=== PATIENT | female | born 1940 | race Caucasian/White ===

== ENCOUNTER 2018-05-31 10:21 | Emergency (ER) | payer MEDICARE, OTHER ==
[2018-05-31 11:31] LABS: BASO % 0.9 % (0.0-1.0); EOS # 0.1 10^3/uL (0.0-0.50); EOS % 2.8 % (0.0-3.0); HEMATOCRIT 33.9 % (36.0-47.0); HEMOGLOBIN 11.4 g/dl (12.0-15.5); IMMATURE GRANULOCYTE % 0.2 % (0-3.0); LYMPH # 1.7 10^3/uL (1.5-4.5); MEAN CORPUSCULAR HEMOGLOBIN 33.2 pg (27.0-33.0); MEAN CORPUSCULAR HGB CONC 33.6 g/dl (32.0-36.5); MEAN CORPUSCULAR VOLUME 98.8 fl (80.0-96.0); MONO # 0.5 10^3/uL (0.0-0.8); MONO % 10.2 % (0.0-5.0); NEUTROPHILS # 2.2 10^3/uL (1.8-7.7); NEUTROPHILS % 48.9 % (36.0-66.0); PLATELET COUNT, AUTOMATED 230 10^3/uL (150-450); RED BLOOD COUNT 3.43 10^6/uL (4.00-5.40); RED CELL DISTRIBUTION WIDTH 12.2 % (11.5-14.5); WHITE BLOOD COUNT 4.6 10^3/uL (4.0-10.0)
[2018-05-31 11:56] LABS: ANION GAP 8 MEQ/L (8-16); BLOOD UREA NITROGEN 11 MG/DL (7-18); CALCIUM LEVEL 8.5 MG/DL (8.8-10.2); CARBON DIOXIDE LEVEL 26 MEQ/L (21-32); CHLORIDE LEVEL 106 MEQ/L (98-107); CREATININE FOR GFR 0.96 MG/DL (0.55-1.30); GLOMERULAR FILTRATION RATE > 60.0 (>39); GLUCOSE, FASTING 86 MG/DL (70-100); POTASSIUM SERUM 4.4 MEQ/L (3.5-5.1); SODIUM LEVEL 140 MEQ/L (136-145)
[2018-05-31] MEDS ORDERED: ISOVUE-370 76% 100ML VIAL (Q9967) As Ordered (12:02)
[2018-05-31 12:32] LABS: APPEARANCE, URINE HAZY (CLEAR); BACTERIA, URINE AUTO 3+ (NEGATIVE); BILIRUBIN, URINE AUTO NEGATIVE (NEGATIVE); BLOOD, URINE BLOOD 1+ (NEGATIVE); COLOR, URINE YELLOW (YELLOW); GLUCOSE, URINE (UA) AUTO NEGATIVE (NEGATIVE); KETONE, URINE AUTO TRACE mg/dL (NEGATIVE); LEUKOCYTE ESTERASE, URINE AUTO 3+ (NEGATIVE); MUCUS, URINE SMALL (NEGATIVE); NITRITE, URINE AUTO NEGATIVE (NEGATIVE); PROTEIN, URINE AUTO NEGATIVE (NEGATIVE); RBC, URINE AUTO 5 /HPF (0-3); SPECIFIC GRAVITY URINE AUTO 1.016 (1.002-1.035); SQUAMOUS EPITHELIAL CELL UR AU 0 /HPF (0-6); WBC, URINE AUTO 85 /HPF (0-3)
== END 2018-05-31 13:44 | disposition home or self-care (01) ==
LOC: M ED 10:21
DX: I72.2 Aneurysm of renal artery (principal); M54.5 Low back pain; N28.1 Cyst of kidney, acquired; Z79.899 Other long term (current) drug therapy
CPT/HCPCS: Q9967

== ENCOUNTER → 2018-10-29 | Outpatient (REF) | payer MEDICARE ==
[~2018-10-29] MED LIST: DICL75TA PO; LISI-538 PO; PROT20TA11 PO
[2018-10-29 13:06] LABS: BASO % 0.8 % (0.0-1.0); EOS # 0.2 10^3/uL (0.0-0.50); EOS % 3.6 % (0.0-3.0); HEMATOCRIT 36.2 % (36.0-47.0); HEMOGLOBIN 11.6 g/dl (12.0-15.5); LYMPH # 1.9 10^3/uL (1.5-4.5); LYMPH % 37.7 % (24.0-44.0); MEAN CORPUSCULAR HEMOGLOBIN 31.9 pg (27.0-33.0); MEAN CORPUSCULAR VOLUME 99.5 fl (80.0-96.0); MONO # 0.5 10^3/uL (0.0-0.8); MONO % 10.7 % (0.0-5.0); NEUTROPHILS # 2.3 10^3/uL (1.8-7.7); NEUTROPHILS % 46.8 % (36.0-66.0); PLATELET COUNT, AUTOMATED 236 10^3/uL (150-450); RED BLOOD COUNT 3.64 10^6/uL (4.00-5.40); WHITE BLOOD COUNT 4.9 10^3/uL (4.0-10.0)
[2018-10-29 13:49] LABS: ALBUMIN 3.8 GM/DL (3.2-5.2); ALT/SGPT 15 U/L (12-78); BILIRUBIN,TOTAL 0.4 MG/DL (0.2-1.0); BLOOD UREA NITROGEN 17 MG/DL (7-18); CALCIUM LEVEL 8.7 MG/DL (8.8-10.2); CARBON DIOXIDE LEVEL 27 MEQ/L (21-32); CHLORIDE LEVEL 109 MEQ/L (98-107); CHOLESTEROL LEVEL 244 MG/DL (<200); CHOLESTEROL RISK RATIO 5.191 (<5); CREATININE FOR GFR 0.84 MG/DL (0.55-1.30); FREE T4 1.12 NG/DL (0.76-1.46); GLOMERULAR FILTRATION RATE > 60.0 (>39); GLUCOSE, FASTING 96 MG/DL (70-100); HDL CHOLESTEROL 47 MG/DL (>40); LDL CHOLESTEROL 178 MG/DL (<100); NON-HDL-C 197 MG/DL; POTASSIUM SERUM 4.9 MEQ/L (3.5-5.1); SODIUM LEVEL 140 MEQ/L (136-145); TOTAL PROTEIN 7.4 GM/DL (6.4-8.2); TRIGLYCERIDES LEVEL 96 MG/DL (<150)
[2018-10-29 14:09] LABS: TOTAL 25(OH) VITAMIN D 25.7 NG/ML (30.0-100.0)
== END ==
LOC: M SFHCADAM 08:33
PROVIDERS: ATTEND Physician Assistant Medical
DX: I72.2 Aneurysm of renal artery (principal); F33.1 Major depressive disorder, recurrent, moderate; I10 Essential (primary) hypertension; R41.3 Other amnesia
CPT/HCPCS: 80053; 80061; 82306; 84439; 84443; 85025; G0463

== ENCOUNTER → 2018-11-03 | Outpatient (CLI) | payer MEDICARE | LOC: M RAD 11:51 | PROVIDERS: ATTEND Surgery Vascular Surgery | DX: I72.2 Aneurysm of renal artery (principal) ==

== ENCOUNTER → 2018-11-06 | Outpatient (CLI) | payer MEDICARE ==
--- NOTE | 2018-11-06 08:58 | REP ---
Urinary tract sonography with renal artery Doppler assessment: History: Renal artery aneurysm. Comparison CT angiography is from May 31, 2018. Findings: Scanning at the level of the urinary bladder shows that it is largely empty at the time of scanning. Renal cortical echogenicity pattern is normal bilaterally. There is no evidence of hydronephrosis on either side. The right renal dimensions are 10.4 x 5.8 x 4.7 cm. Left kidney measures 9.9 x 7.1 x 5.1 cm. Exam quality is inhibited some degree by bowel gas. There is a septated cyst in the lower pole right kidney measuring 5.2 x 4.1 x 4.9 cm. No other cyst or mass is seen. Renal vascular findings: Peak systolic flow velocity in the abdominal aorta is normal at the level of the main renal artery origins measured at 108.3 cm/sec. Peak systolic flow velocity in the right main renal artery is recorded at 160.5 cm/sec and that in the left main renal artery is recorded proximally and 191 cm/sec. Renal to aortic flow velocity ratios are therefore normal measured at 1.5 on the right and 1.8 on the left. Visualization of the left main renal artery aneurysm is somewhat inhibited by bowel gas. Calcification is seen within the aneurysm wall. A bilobed morphology is seen. Dimensions are 1.5 x 1.6 and 1.7 x 1.3 cm by ultrasound. 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 Cyst in the lower pole right kidney. Electronically Signed by Mejia Muir MD 11/06/2018 02:28 P
== END ==
LOC: M RAD 06:53
PROVIDERS: ATTEND Surgery Vascular Surgery
DX: I72.2 Aneurysm of renal artery (principal); N28.1 Cyst of kidney, acquired

== ENCOUNTER → 2019-02-22 | Outpatient (CLI) | payer MEDICARE ==
--- NOTE | 2019-02-22 18:07 | REP ---
Left knee five views: There are no comparisons. There is medial compartment joint space narrowing and osteophytic formation compatible with osteoarthritis. The lateral compartment is unremarkable. There is mild patellofemoral osteoarthritis. There is a small joint effusion. There is no fracture or dislocation. There are no calcifications. There is diffuse demineralization. Impression: No fracture or dislocation. Small joint effusion. Osteoarthritis. Demineralization. Electronically Signed by Paul Stokes MD 02/22/2019 05:59 P
== END ==
LOC: M ADAMS 17:14
PROVIDERS: ATTEND Physician Assistant
DX: M17.12 Unilateral primary osteoarthritis, left knee (principal); M25.562 Pain in left knee; M85.80 Other specified disorders of bone density and structure, unspecified site

== ENCOUNTER → 2019-06-21 | Outpatient (CLI) | payer MEDICARE ==
--- NOTE | 2019-06-21 10:06 | REP ---
Renal sonography: History: Renal artery aneurysm. Comparison sonography November 06, 2018. Comparison CT study May 31, 2018. Followup. Sonographic findings: Exam quality is significantly impaired by bowel gas and limited sonographic windows. The distal left renal artery again demonstrates a bilobed left renal artery aneurysm measuring 1.4 x 1.7 and 1.4 x 1.5 in the proximal and distal components respectively. This is felt to be unchanged. The main renal arteries measure 8 mm on the left and 6 mm on the right. Renal cortical echogenicity pattern is normal and contours are smooth. The right kidney measures 11.2 x 5.3 x 5.1 cm. The left renal dimensions are 9.9 x 4.7 x 4.3 cm. There is a cyst in the lower pole of the right kidney measuring 4.5 x 4.1 x 4.4 cm. Impression: 4.5 cm cyst lower pole right kidney. Bilobed left distal renal artery aneurysm measuring 1.7 cm in greatest diameter felt to be unchanged. Electronically Signed by Mejia Muir MD 06/21/2019 01:36 P
== END ==
LOC: M RAD 08:45
PROVIDERS: ATTEND Physician Assistant
DX: I72.2 Aneurysm of renal artery (principal); N28.1 Cyst of kidney, acquired

== ENCOUNTER → 2019-07-27 | Outpatient (REF) | payer MEDICARE ==
[2019-07-27 12:43] LABS: ALT/SGPT 16 U/L (12-78); BILIRUBIN,TOTAL 0.5 MG/DL (0.2-1.0); BLOOD UREA NITROGEN 19 MG/DL (7-18); CALCIUM LEVEL 9.3 MG/DL (8.8-10.2); CARBON DIOXIDE LEVEL 28 MEQ/L (21-32); CHLORIDE LEVEL 104 MEQ/L (98-107); CHOLESTEROL LEVEL 202 MG/DL (<200); CHOLESTEROL RISK RATIO 3.607 (<5); CREATININE FOR GFR 0.92 MG/DL (0.55-1.30); GLOMERULAR FILTRATION RATE > 60.0 (>39); GLUCOSE, FASTING 92 MG/DL (70-100); HDL CHOLESTEROL 56 MG/DL (>40); LDL CHOLESTEROL 125 MG/DL (<100); NON-HDL-C 146 MG/DL; POTASSIUM SERUM 4.7 MEQ/L (3.5-5.1); SODIUM LEVEL 137 MEQ/L (136-145); TOTAL PROTEIN 7.3 GM/DL (6.4-8.2); TRIGLYCERIDES LEVEL 105 MG/DL (<150)
== END ==
LOC: M SFHCADAM 09:44
PROVIDERS: ATTEND Physician Assistant Medical
DX: I10 Essential (primary) hypertension (principal); E78.2 Mixed hyperlipidemia

== ENCOUNTER → 2020-03-07 | Outpatient (REF) | payer MEDICARE ==
[2020-03-31 11:40] LABS: BASO % 0.6 % (0.0-1.0); EOS # 0.2 10^3/uL (0.0-0.5); EOS % 3.3 % (0.0-3.0); HEMATOCRIT 37.3 % (36.0-47.0); HEMOGLOBIN 12.3 g/dl (12.0-15.5); LYMPH # 2.6 10^3/uL (1.5-5.0); MEAN CORPUSCULAR HEMOGLOBIN 32.5 pg (27.0-33.0); MEAN CORPUSCULAR VOLUME 98.7 fl (80.0-96.0); MONO # 0.7 10^3/uL (0.0-0.8); MONO % 11.6 % (0.0-5.0); NEUTROPHILS # 2.7 10^3/uL (1.5-8.5); NEUTROPHILS % 43.3 % (36.0-66.0); PLATELET COUNT, AUTOMATED 266 10^3/uL (150-450); RED BLOOD COUNT 3.78 10^6/uL (4.00-5.40); WHITE BLOOD COUNT 6.3 10^3/uL (4.0-10.0)
[2020-04-11 13:34] LABS: ALBUMIN 4.3 GM/DL (3.2-5.2); BILIRUBIN,TOTAL 0.5 MG/DL (0.2-1.0); CALCIUM LEVEL 9.3 MG/DL (8.8-10.2); CREATININE FOR GFR 1.27 MG/DL (0.55-1.30); GLOMERULAR FILTRATION RATE 43.4 (>39); POTASSIUM SERUM 5.9 MEQ/L (3.5-5.1); TOTAL PROTEIN 7.7 GM/DL (6.4-8.2)
== END ==
LOC: M SFHCADAM 15:01
PROVIDERS: ATTEND Physician Assistant
DX: R10.13 Epigastric pain (principal)
CPT/HCPCS: 36415; 80053; 82150; 83690; 85025; G0463

== ENCOUNTER → 2020-03-10 | Outpatient (REF) | payer MEDICARE ==
[2020-04-23 08:14] LABS: Lyme Disease IgG/IgM Antibodie See Separate Report
== END ==
LOC: M SFHCADAM 12:00
PROVIDERS: ATTEND Physician Assistant Medical
DX: Z11.8 Encounter for screening for other infectious and parasitic diseases (principal); W57.XXXA Bitten or stung by nonvenomous insect and other nonvenomous arthropods, initial encounter; X58.XXXA Exposure to other specified factors, initial encounter; Y92.89 Other specified places as the place of occurrence of the external cause
CPT/HCPCS: 36415; 86617; G0463

== ENCOUNTER → 2020-06-29 | Outpatient (REF) | payer MEDICARE ==
[2020-06-29 16:39] LABS: BASO % 0.6 % (0.0-1.0); EOS # 0.3 10^3/uL (0.0-0.5); EOS % 3.7 % (0.0-3.0); HEMATOCRIT 35.2 % (36.0-47.0); HEMOGLOBIN 11.2 g/dl (12.0-15.5); LYMPH # 2.7 10^3/uL (1.5-5.0); LYMPH % 38.1 % (24.0-44.0); MEAN CORPUSCULAR HEMOGLOBIN 31.6 pg (27.0-33.0); MEAN CORPUSCULAR HGB CONC 31.8 g/dl (32.0-36.5); MEAN CORPUSCULAR VOLUME 99.4 fl (80.0-96.0); MONO # 0.8 10^3/uL (0.0-0.8); MONO % 10.7 % (0.0-5.0); NEUTROPHILS # 3.3 10^3/uL (1.5-8.5); NEUTROPHILS % 46.6 % (36.0-66.0); PLATELET COUNT, AUTOMATED 264 10^3/uL (150-450); RED BLOOD COUNT 3.54 10^6/uL (4.00-5.40); WHITE BLOOD COUNT 7.1 10^3/uL (4.0-10.0)
[2020-06-29 17:40] LABS: ALBUMIN 3.3 GM/DL (3.2-5.2); BILIRUBIN,TOTAL 0.5 MG/DL (0.2-1.0); CALCIUM LEVEL 9.4 MG/DL (8.8-10.2); CHOLESTEROL RISK RATIO 4.173 (<5); CREATININE FOR GFR 1.05 MG/DL (0.55-1.30); POTASSIUM SERUM 4.7 MEQ/L (3.5-5.1); THYROID STIMULATING HORMONE 1.45 uIU/ML (0.358-3.740); TOTAL PROTEIN 7.3 GM/DL (6.4-8.2)
== END ==
LOC: M SFHCADAM 12:53
PROVIDERS: ATTEND Physician Assistant Medical
DX: E78.2 Mixed hyperlipidemia (principal); I10 Essential (primary) hypertension
CPT/HCPCS: 80053; 80061; 84443; 85025; G0463

== ENCOUNTER 2020-07-13 10:28 | Emergency (ER) | payer MEDICARE ==
[~2020-07-13] VITALS: Ht 162.6 cm; Wt 79.5 kg
[2020-07-13] MEDS ORDERED: SIMV40TA20 PO (10:42)
[2020-07-13] MEDS ORDERED: DULO1CAP4 PO (10:42)
[2020-07-13] MEDS ORDERED: ACETAMINOPHEN 325 MG TAB PO ONE (11:00)
--- NOTE | 2020-07-13 11:23 | REP ---
INDICATION: trauma. COMPARISON: None. TECHNIQUE: Helical scanning is acquired. 5 mm axial images were reformatted. Coronal MPR images were generated. FINDINGS: Bone window settings demonstrate an intact bony calvarium. There is no evidence of skull fracture or incidental bony calvarial lesion. The visualized paranasal sinuses appear clear. No intraorbital abnormality is seen. On soft tissue window setting images; the lateral, third, and fourth ventricles are normal in size and position. Mclain-white differentiation pattern is normal above and below the tentorium. There are is no evidence of intracranial hemorrhage. No mass, edema, infarction, or midline shift is seen. No extra-axial fluid collection is appreciated. Vascular calcification is noted in the distal internal carotid arteries bilaterally. There is mild generalized volume loss. Small vessel atherosclerotic changes are visible in the periventricular white matter of the frontal and parietal lobes bilaterally. IMPRESSION: Generalized volume loss and vascular calcification. Small vessel changes. No acute intracranial abnormality.. <Electronically signed by Kenneth Muir > 07/13/20 1113
--- NOTE | 2020-07-13 11:28 | REP ---
INDICATION: trauma. COMPARISON: None. TECHNIQUE: Helical scanning is acquired and overlapping 2 mm high resolution axial images were generated and reviewed at bone and soft tissue window settings. Coronal and sagittal multiplanar re-formations images are generated. FINDINGS: There is no evidence of cervical spine element fracture. No skull base fracture is seen. Cervical vertebral body heights are preserved. Alignment is normal. Facet joints are normally aligned bilaterally at each cervical level on multiplanar re-formations images. There is no evidence of intraspinal or paraspinal hematoma. No extra vertebral abnormality is seen. There are degenerative spondylosis changes with discogenic spurring at C2-3, C4-5, C5-6, C6-7, and C7-T1. Bridging anterior osteophytes are formed at C2-3. The left-sided C2-3 and C5-6 facet joints appear to be ankylosed. There is osteoarthritic facet hypertrophy at the other facet articulations the left more so than right. There is osteoarthritis at the articulation between the dens and anterior arch of C1. No prevertebral soft tissue swelling is seen. There is a small cyst or nodule in the right lobe of the thyroid measuring 8 mm in diameter. IMPRESSION: Degenerative spondylosis changes. Otherwise negative CT study of the cervical spine. No traumatic abnormality seen.. <Electronically signed by Kenneth Muir > 07/13/20 [id number]
--- NOTE | 2020-07-13 11:35 | REP ---
INDICATION: trauma. COMPARISON: None. TECHNIQUE: Four views. FINDINGS: Four views of the right hand demonstrate diffuse osteoporosis. There are osteoarthritic changes at the 1st carpometacarpal articulation and at the PIP and DIP joints of the fingers.. No fracture or subluxation is seen. No opaque foreign body noted. IMPRESSION: Osteoarthritic changes and diffuse osteopenia. No fracture seen.. <Electronically signed by Kenneth Muir > 07/13/20 [id number]
--- NOTE | 2020-07-13 11:37 | REP ---
INDICATION: trauma. COMPARISON: None. TECHNIQUE: Four views. FINDINGS: Four views of the right foot demonstrate diffuse osteoporosis. There is plantar calcaneal spurring and some soft tissue calcification along the plantar fascia is seen. Mild midfoot osteoarthritic spurring is visible. There is an os perineum.. No fracture or subluxation is seen. No opaque foreign body noted. IMPRESSION: No fracture seen.. <Electronically signed by Kenneth Muir > 07/13/20 3000
--- NOTE | 2020-07-13 11:38 | REP ---
INDICATION: trauma. COMPARISON: None. TECHNIQUE: Four views. FINDINGS: Four views of the right tib fib area demonstrate diffuse osteoporosis. There is mild osteoarthritic spurring at the medial compartment of the knee and non articular superior pole patellar spurring is noted. Achilles and plantar calcaneal spurs are noted.. No fracture or subluxation is seen. No opaque foreign body noted. IMPRESSION: No fracture seen. Diffuse osteopenia and degenerative changes.. <Electronically signed by Kenneth Muir > 07/13/20 [id number]
[2020-07-13] MEDS ORDERED: ROLLMIS8 XX (12:13)
[2020-07-13 12:23] VITALS: BP 185/84
[2020-07-14] MEDS ORDERED: ROLLMIS8 XX (15:31)
[2020-07-14] MEDS ORDERED: walker (15:56)
== END 2020-07-13 12:30 | disposition home or self-care (01) ==
LOC: M ED 10:28
DX: S90.31XA Contusion of right foot, initial encounter (principal); S80.11XA Contusion of right lower leg, initial encounter; W19.XXXA Unspecified fall, initial encounter; Y92.9 Unspecified place or not applicable; Y93.9 Activity, unspecified; Y99.9 Unspecified external cause status; F32.9 Major depressive disorder, single episode, unspecified; Z87.891 Personal history of nicotine dependence; M47.812 Spondylosis without myelopathy or radiculopathy, cervical region; M19.041 Primary osteoarthritis, right hand; M85.841 Other specified disorders of bone density and structure, right hand; M85.861 Other specified disorders of bone density and structure, right lower leg; Z79.899 Other long term (current) drug therapy

== ENCOUNTER 2020-07-14 13:56 | Emergency (ER) | payer MEDICARE ==
[~2020-07-14] VITALS: Ht 167.6 cm; Wt 79.5 kg
[~2020-07-14 13:56] MED LIST changes: +DULO1CAP4 PO; +ROLLMIS8 XX; +SIMV40TA20 PO
--- NOTE | 2020-07-14 15:24 | REP ---
INDICATION: fall. COMPARISON: Comparison radiographs are from earlier this date right tib fib series.. TECHNIQUE: Five views. FINDINGS: Five views of the right knee demonstrate diffuse osteopenia. There is mild medial compartment osteoarthritic spurring. There is articular and non articular spurring of the patella on the lateral radiograph. No sunrise views included. Fullness on the lateral radiograph suggestive of joint effusion is seen. No fracture is noted.. No fracture or subluxation is seen. No opaque foreign body noted. IMPRESSION: Possible joint effusion. Medial and patellofemoral compartment osteoarthritic spurring. Diffuse osteopenia. No fracture seen.. <Electronically signed by Kenneth Muir > 07/14/20 [id number]
[2020-07-14] MEDS ORDERED: ROLLMIS8 XX (15:31)
[2020-07-14] MEDS ORDERED: walker (15:56)
[2020-07-14 15:57] VITALS: BP 212/98
== END 2020-07-14 16:07 | disposition home or self-care (01) ==
LOC: M ED 13:56
DX: S83.91XA Sprain of unspecified site of right knee, initial encounter (principal); W19.XXXA Unspecified fall, initial encounter; Y92.099 Unspecified place in other non-institutional residence as the place of occurrence of the external cause; Y93.9 Activity, unspecified; Y99.9 Unspecified external cause status; I10 Essential (primary) hypertension; M85.861 Other specified disorders of bone density and structure, right lower leg; M17.11 Unilateral primary osteoarthritis, right knee; M25.761 Osteophyte, right knee; Z79.899 Other long term (current) drug therapy

== ENCOUNTER → 2020-07-20 | Outpatient (REF) | payer MEDICARE ==
[~2020-07-20] MED LIST changes: +walker
== END ==
LOC: M LAB REF 13:43
PROVIDERS: ATTEND Dermatology
DX: C44.319 Basal cell carcinoma of skin of other parts of face (principal)

== ENCOUNTER → 2021-01-11 | Outpatient (REF) | payer MEDICARE ==
[~2021-01-11] MED LIST changes: -LISI-538 PO; +LISI20TA33 PO
== END ==
LOC: M LAB REF 19:05
PROVIDERS: ATTEND Dermatology
DX: L57.0 Actinic keratosis (principal)

== ENCOUNTER → 2021-02-01 | Outpatient (REF) | payer MEDICARE ==
[2021-02-01 13:56] LABS: BASO % 0.6 % (0.0-1.0); EOS # 0.2 10^3/uL (0.0-0.5); EOS % 2.5 % (0.0-3.0); HEMATOCRIT 37.7 % (36.0-47.0); LYMPH # 2.2 10^3/uL (1.5-5.0); LYMPH % 32.1 % (24.0-44.0); MEAN CORPUSCULAR HEMOGLOBIN 32.3 pg (27.0-33.0); MEAN CORPUSCULAR HGB CONC 31.8 g/dl (32.0-36.5); MEAN CORPUSCULAR VOLUME 101.3 fl (80.0-96.0); MONO # 0.7 10^3/uL (0.0-0.8); MONO % 9.8 % (2.0-8.0); NEUTROPHILS # 3.8 10^3/uL (1.5-8.5); NEUTROPHILS % 54.7 % (36.0-66.0); PLATELET COUNT, AUTOMATED 300 10^3/uL (150-450); RED BLOOD COUNT 3.72 10^6/uL (4.00-5.40); WHITE BLOOD COUNT 6.9 10^3/uL (4.0-10.0)
[2021-02-01 14:20] LABS: ALBUMIN 4.4 GM/DL (3.2-5.2); BILIRUBIN,TOTAL 0.7 MG/DL (0.2-1.0); CALCIUM LEVEL 9.5 MG/DL (8.8-10.2); CHOLESTEROL RISK RATIO 3.937 (<5); CREATININE FOR GFR 1.01 MG/DL (0.55-1.30); GLOMERULAR FILTRATION RATE 56.4 (>39); POTASSIUM SERUM 4.7 MEQ/L (3.5-5.1); THYROID STIMULATING HORMONE 1.77 uIU/ML (0.358-3.740)
[2021-02-01 14:43] LABS: HEMOGLOBIN A1c 5.4 %
== END ==
LOC: M SFHCADAM 09:59
PROVIDERS: ATTEND Physician Assistant Medical
DX: E78.2 Mixed hyperlipidemia (principal); I10 Essential (primary) hypertension; H91.93 Unspecified hearing loss, bilateral; Z79.899 Other long term (current) drug therapy

== ENCOUNTER 2021-02-22 16:46 | Emergency (ER) | payer MEDICARE ==
[~2021-02-22] VITALS: Ht 162.6 cm; Wt 83.2 kg
[2021-02-22 17:33] LABS: BASO # 0.1 10^3/uL (0.0-0.2); BASO % 0.8 % (0.0-1.0); EOS # 0.3 10^3/uL (0.0-0.5); HEMATOCRIT 33.4 % (36.0-47.0); LYMPH # 2.5 10^3/uL (1.5-5.0); MEAN CORPUSCULAR HEMOGLOBIN 32.5 pg (27.0-33.0); MEAN CORPUSCULAR HGB CONC 32.9 g/dl (32.0-36.5); MEAN CORPUSCULAR VOLUME 98.8 fl (80.0-96.0); MONO # 0.7 10^3/uL (0.0-0.8); PLATELET COUNT, AUTOMATED 240 10^3/uL (150-450); RED BLOOD COUNT 3.38 10^6/uL (4.00-5.40); WHITE BLOOD COUNT 6.4 10^3/uL (4.0-10.0)
[2021-02-22] MEDS ORDERED: ACET-683 PO (17:57)
[2021-02-22] MEDS ORDERED: LISI30TA4 (17:57)
[2021-02-22 18:00] LABS: BLOOD UREA NITROGEN 26 MG/DL (7-18); CALCIUM LEVEL 8.4 MG/DL (8.8-10.2); CARBON DIOXIDE LEVEL 27 MEQ/L (21-32); CHLORIDE LEVEL 107 MEQ/L (98-107); CK-MB VALUE MASS 1.3 NG/ML (<3.6); CPK CREATINE PHOSPHOKINASE 73 U/L (26-192); CREATININE FOR GFR 1.23 MG/DL (0.55-1.30); GLUCOSE, FASTING 94 MG/DL (70-100); MB/CK RELATIVE INDEX 1.78 (< OR =4); POTASSIUM SERUM 5.3 MEQ/L (3.5-5.1); SODIUM LEVEL 136 MEQ/L (136-145); TROPONIN I < 0.02 NG/ML (< 0.10)
[2021-02-22] MEDS ORDERED: LIDOCAINE 5% (LIDODERM) PATCH TD ONE (18:10)
--- NOTE | 2021-02-22 18:25 | REP ---
INDICATION: left scapular pain. COMPARISON: None. TECHNIQUE: AP and tangential scapular Y-views are provided. FINDINGS: Two views of the left scapula demonstrate normal alignment of the glenohumeral and acromioclavicular joints. There is inferior glenoid osteoarthritic spurring and diffuse osteopenia. There is some mild osteoarthritic hypertrophy at the AC joint and lateral acromion process spurring is seen. No fracture or subluxation is seen. No bony destructive lesion is appreciated. IMPRESSION: Mild glenohumeral and acromioclavicular joint osteoarthritis. No acute bony abnormality <Electronically signed by Kenneth Muir > 02/22/21 [id number]
[2021-02-22] MEDS ORDERED: LIDO5DIS41 TOP (19:31)
[2021-02-22 20:08] VITALS: BP 187/77
[2021-02-22] MEDS ORDERED: **NOTE PATIENT COMMENT** MISC XX SCH (21:00)
--- NOTE | 2021-02-23 05:35 | ECGEPIP ---
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
== END 2021-02-22 20:07 | disposition home or self-care (01) ==
LOC: M ED 16:46
DX: S29.012A Strain of muscle and tendon of back wall of thorax, initial encounter (principal); X58.XXXA Exposure to other specified factors, initial encounter; Y92.9 Unspecified place or not applicable; Y93.9 Activity, unspecified; Y99.9 Unspecified external cause status; M19.012 Primary osteoarthritis, left shoulder; I10 Essential (primary) hypertension; M54.9 Dorsalgia, unspecified; Z79.899 Other long term (current) drug therapy

== ENCOUNTER → 2021-03-12 | Outpatient (CLI) | payer MEDICARE, OTHER ==
[~2021-03-12] MED LIST changes: +ACET-683 PO; +LIDO5DIS41 TOP; +LISI30TA4
--- NOTE | 2021-03-12 11:41 | REP ---
INDICATION: RENAL ARTERY ANEURYSM. COMPARISON: Abdomen/pelvis CT with IV contrast dated 05/31/2018. TECHNIQUE: Bilateral renal ultrasound and bilateral renal artery ultrasound. FINDINGS: Bilateral renal ultrasound: The right kidney measures 11.8 x 4.8 x 4.8 cm. Left kidney measures 9.1 x 4.2 x 4.4 cm. The kidneys are normal size, of the left kidney is in the low normal size range. There is no hydronephrosis or calculus on the right or the left. There is a right renal lower pole cyst measuring 5.0 x 4.2 cm. This cyst measured 4.0 cm on the comparison CT. There is a thin cyst wall and a thin septation within the cyst. This is a Bosniak type 1 cyst. There are no renal solid masses. There is no perinephric fluid collection. Bilateral renal artery ultrasound: The known bilobed distal left renal aneurysm near the left renal hilus identified on the comparison CT, is poorly identified on the ultrasound study today.The proximal lobe of the aneurysm measures 13 mm by ultrasound today and the distal lobe of the aneurysm measures 12 mm by ultrasound today. On the comparison CT the distal lobe measured 14 mm in the proximal lobe measures 13 mm. Right renal artery: Peak renal artery velocity 111.4 centimeters/second. Peak aortic velocity 56.0 centimeters/second Renal-aortic ratio: 2.0 Intrarenal arteries: Resistive index: Upper pole 0.77, mid pole 0.75, lower pole 0.80 Acceleration time: Upper pole 0.012, mid pole 0.039, lower pole 0.016 Left Renal artery: Peak renal artery velocity: 168.8 centimeters/second Peak aortic velocity: 56.0 centimeters/second. Renal-aortic ratio: 3.0 The left renal artery resistive indices and acceleration times could not be evaluated because of limited the of visualization. Visualization obscured by bowel gas. The renal artery Doppler waveforms demonstrate a parvus tardus waveform a bilaterally. This is of uncertain significance as there is no definite renal artery stenosis identified. However, the renal arteries are not optimally visualized by ultrasound. CTA or MRA might be considered for follow-up. IMPRESSION: Left kidney is th low normal size but otherwise unremarkable. Bilobed renal artery aneurysm in the distal left renal artery as described. Type 1 Bosniak cyst in the right renal lower pole. 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 No evidence of renal artery stenosis by ultrasound, however the ultrasound images of the renal arteries are suboptimal because of bowel gas obscuration. Consider follow-up CTA or MRA. <Electronically signed by Paul Stokes > 03/12/21 [id number]
== END ==
LOC: M RAD 08:20
PROVIDERS: ATTEND Physician Assistant Medical
DX: I72.2 Aneurysm of renal artery (principal); N28.1 Cyst of kidney, acquired

== ENCOUNTER → 2021-03-31 | Outpatient (CLI) | payer MEDICARE, OTHER ==
[2021-03-31 17:04] LABS: CREATININE FOR GFR 1.05 MG/DL (0.55-1.30)
== END ==
LOC: M LAB 16:06
PROVIDERS: ATTEND Surgery Vascular Surgery
DX: I72.2 Aneurysm of renal artery (principal)

== ENCOUNTER → 2021-04-06 | Outpatient (CLI) | payer MEDICARE ==
[~2021-04-06] MED LIST changes: +ISOVUE-370 76% 100ML VIAL As Ordered ONE
--- NOTE | 2021-04-06 13:02 | REP ---
INDICATION: ANEURYSM COMPARISON: None TECHNIQUE: Axial contrast-enhanced images from the lung bases to the pubic symphysis using aortic angiographic technique including coronal and sagittal reformations, volume rendered 3D MPR images, and volume rendered 3D CT aortogram. 100 cc Isovue 370 intravenous contrast material administered without complication. This CT examination was performed using the following dose reduction techniques: Automated exposure control, adjustment of mA and/or kv according to the patient's size, and use of iterative reconstruction technique. FINDINGS: The abdominal aorta through the bifurcation to iliac arteries demonstrates minimal scattered calcified atheromatous plaquing without evidence for aneurysm or dissection. The celiac access, mesenteric artery, and inferior mesenteric artery are normal. There is a small focus of calcification at the origin of the right main artery. The origin of the left main artery is normal and there is a bilobed mid to distal left renal artery aneurysm measuring roughly 3.3 cm in length and 1.6 cm maximal diameter. Bilateral common iliac along with bilateral internal and external iliac arteries are relatively normal and appear patent. Liver, spleen, pancreas, bilateral adrenal glands are normal. Evidence for prior cholecystectomy. Kidneys demonstrate symmetric age-related cortical thinning along with 5.2 cm simple right renal cyst. The enteric system is without obstruction or acute inflammatory process. Normal terminal ileum and appendix identified in the right lower quadrant. Scattered sigmoid diverticula noted without acute diverticulitis. Pelvis demonstrates normal bladder and age-appropriate uterus/adnexa. No ascites. No free air. No adenopathy. Musculoskeletal structures are intact and without acute osseous abnormality. Lung bases are clear. IMPRESSION: 1. Angiographic evaluation demonstrates stable known bilobed left main renal artery aneurysm along with minimal atherosclerotic changes along the aorta and iliac arteries without further aneurysm, stenosis or occlusion. 2. 5.2 cm simple right renal cyst. 3. Sigmoid diverticula without acute diverticulitis. 4. No further acute abdominopelvic pathology appreciated. <Electronically signed by Corbin Montesinos > 04/06/21 [id number]
== END ==
LOC: M RAD 11:28
PROVIDERS: ATTEND Surgery Vascular Surgery
DX: I72.2 Aneurysm of renal artery (principal); I70.0 Atherosclerosis of aorta; N28.1 Cyst of kidney, acquired; K57.30 Diverticulosis of large intestine without perforation or abscess without bleeding
CPT/HCPCS: 74174; Q9967

== ENCOUNTER → 2021-05-23 | Outpatient (CLI) | payer MEDICARE ==
[~2021-05-23] MED LIST changes: -ISOVUE-370 76% 100ML VIAL As Ordered ONE
[2021-05-23 11:45] LABS: CHOLESTEROL RISK RATIO 3.979 (<5)
[2021-05-23 12:11] LABS: HEMOGLOBIN A1c 5.4 %
== END ==
LOC: M LAB 10:48
PROVIDERS: ATTEND Psychiatry & Neurology Neurology
DX: E11.9 Type 2 diabetes mellitus without complications (principal); Z86.73 Personal history of transient ischemic attack (TIA), and cerebral infarction without residual deficits

== ENCOUNTER → 2021-10-26 | Outpatient (REF) | payer MEDICARE ==
[2021-10-26 12:55] LABS: BASO % 0.5 % (0.0-1.0); EOS # 0.1 10^3/uL (0.0-0.5); HEMATOCRIT 33.5 % (36.0-47.0); HEMOGLOBIN 11.1 g/dl (12.0-15.5); LYMPH # 1.8 10^3/uL (1.5-5.0); MEAN CORPUSCULAR HEMOGLOBIN 32.1 pg (27.0-33.0); MEAN CORPUSCULAR HGB CONC 33.1 g/dl (32.0-36.5); MEAN CORPUSCULAR VOLUME 96.8 fl (80.0-96.0); MONO # 0.6 10^3/uL (0.0-0.8); MONO % 9.1 % (2.0-8.0); NEUTROPHILS # 3.5 10^3/uL (1.5-8.5); NEUTROPHILS % 57.9 % (36.0-66.0); PLATELET COUNT, AUTOMATED 295 10^3/uL (150-450); RED BLOOD COUNT 3.46 10^6/uL (4.00-5.40)
[2021-10-26 13:27] LABS: ALBUMIN 4.1 GM/DL (3.2-5.2); ALT/SGPT 22 U/L (12-78); BILIRUBIN,TOTAL 0.4 MG/DL (0.2-1.0); BLOOD UREA NITROGEN 17 MG/DL (7-18); CALCIUM LEVEL 9.6 MG/DL (8.8-10.2); CARBON DIOXIDE LEVEL 26 MEQ/L (21-32); CHLORIDE LEVEL 105 MEQ/L (98-107); CHOLESTEROL LEVEL 177 MG/DL (<200); CHOLESTEROL RISK RATIO 3.277 (<5); GLOMERULAR FILTRATION RATE > 60.0 (>39); GLUCOSE, FASTING 96 MG/DL (70-100); HDL CHOLESTEROL 54 MG/DL (>40); LDL CHOLESTEROL 106 MG/DL (<100); NON-HDL-C 123 MG/DL; POTASSIUM SERUM 4.3 MEQ/L (3.5-5.1); SODIUM LEVEL 137 MEQ/L (136-145); TOTAL PROTEIN 6.9 GM/DL (6.4-8.2); TRIGLYCERIDES LEVEL 86 MG/DL (<150)
== END ==
LOC: M SFHCADAM 10:22
PROVIDERS: ATTEND Physician Assistant Medical
DX: F33.1 Major depressive disorder, recurrent, moderate (principal); I10 Essential (primary) hypertension; R41.3 Other amnesia; F43.23 Adjustment disorder with mixed anxiety and depressed mood; F03.90 Unspecified dementia, unspecified severity, without behavioral disturbance, psychotic disturbance, mood disturbance, and anxiety; Z79.899 Other long term (current) drug therapy

== ENCOUNTER → 2022-01-08 | Outpatient (CLI) | payer MEDICARE | LOC: M ADAMS 10:05 | PROVIDERS: ATTEND Physician Assistant Medical | DX: M25.562 Pain in left knee (principal) ==

== ENCOUNTER → 2022-01-30 | Outpatient (CLI) | payer MEDICARE | LOC: M SOG 08:16 | PROVIDERS: ATTEND Orthopaedic Surgery Adult Reconstructive Orthopaedic Surgery | DX: M25.562 Pain in left knee (principal); M17.0 Bilateral primary osteoarthritis of knee ==

== ENCOUNTER 2022-03-29 12:24 | Emergency (ER) | payer MEDICARE ==
[~2022-03-29] VITALS: Ht 162.6 cm; Wt 74.4 kg
[2022-03-29 13:20] LABS: BASO % 0.4 % (0.0-1.0); EOS # 0.1 10^3/uL (0.0-0.5); EOS % 0.9 % (0.0-3.0); HEMOGLOBIN 12.1 g/dl (12.0-15.5); LYMPH # 1.1 10^3/uL (1.5-5.0); LYMPH % 14.3 % (24.0-44.0); MEAN CORPUSCULAR HEMOGLOBIN 32.9 pg (27.0-33.0); MEAN CORPUSCULAR HGB CONC 34.6 g/dl (32.0-36.5); MEAN CORPUSCULAR VOLUME 95.1 fl (80.0-96.0); MONO # 0.5 10^3/uL (0.0-0.8); MONO % 5.8 % (2.0-8.0); NEUTROPHILS % 78.1 % (36.0-66.0); PLATELET COUNT, AUTOMATED 269 10^3/uL (150-450); RED BLOOD COUNT 3.68 10^6/uL (4.00-5.40); WHITE BLOOD COUNT 7.7 10^3/uL (4.0-10.0)
[2022-03-29 14:00] LABS: ALBUMIN 3.9 GM/DL (3.2-5.2); ALT/SGPT 15 U/L (12-78); BILIRUBIN,DIRECT 0.2 MG/DL (0.0-0.2); BILIRUBIN,TOTAL 0.7 MG/DL (0.2-1.0); BLOOD UREA NITROGEN 16 MG/DL (7-18); CALCIUM LEVEL 9.4 MG/DL (8.8-10.2); CARBON DIOXIDE LEVEL 26 MEQ/L (21-32); CHLORIDE LEVEL 98 MEQ/L (98-107); CREATININE FOR GFR 0.92 MG/DL (0.55-1.30); GLOMERULAR FILTRATION RATE > 60.0 (>39); GLUCOSE, FASTING 110 MG/DL (70-100); LIPASE 97 U/L (73-393); POTASSIUM SERUM 4.4 MEQ/L (3.5-5.1); SODIUM LEVEL 130 MEQ/L (136-145); TOTAL PROTEIN 7.6 GM/DL (6.4-8.2)
[2022-03-29] MEDS ORDERED: NS 500 ML IV ONE (16:55)
[2022-03-29 19:59] VITALS: BP 185/87
== END 2022-03-29 19:30 | disposition home or self-care (01) ==
LOC: M ED 12:24
DX: R10.13 Epigastric pain (principal); R00.1 Bradycardia, unspecified; I10 Essential (primary) hypertension; N28.1 Cyst of kidney, acquired; Z79.899 Other long term (current) drug therapy

== ENCOUNTER → 2022-09-27 | Outpatient (CLI) | payer MEDICARE ==
[2022-09-27 14:03] LABS: THYROID STIMULATING HORMONE 2.404 uIU/ML (0.55-4.78)
[2022-09-27 14:05] LABS: ALKALINE PHOSPHATASE 91 U/L (46-116); ALT/SGPT 11 U/L (7.0-40); AST/SGOT 18 U/L (<34); BILIRUBIN,TOTAL 0.5 MG/DL (0.3-1.2); BLOOD UREA NITROGEN 13 MG/DL (9-23); CALCIUM LEVEL 9.5 MG/DL (8.3-10.6); CARBON DIOXIDE LEVEL 29 MMOL/L (20-31); CHLORIDE LEVEL 101 MMOL/L (98-107); CHOLESTEROL LEVEL 212 MG/DL (<200); CHOLESTEROL RISK RATIO 3.58 (<5); GLOMERULAR FILTRATION RATE > 60.0 (>32); GLUCOSE, FASTING 102 MG/DL (74-106); HDL CHOLESTEROL 59.1 MG/DL (>40); LDL CHOLESTEROL 133.3 MG/DL (<100); NON-HDL-C 153 MG/DL; POTASSIUM SERUM 4.5 MMOL/L (3.5-5.1); SODIUM LEVEL 136 MMOL/L (136-145); TOTAL PROTEIN 7.2 G/DL (5.7-8.2); TRIGLYCERIDES LEVEL 98 MG/DL (<150)
[2022-09-27 14:06] LABS: TOTAL 25(OH) VITAMIN D 18.8 NG/ML (20.0-100.0)
[2022-09-27 14:08] LABS: VITAMIN B12 LEVEL 108 PG/ML (211-911)
[2022-09-27 14:17] LABS: BASO # 0.1 10^3/uL (0.0-0.2); BASO % 0.7 % (0.0-1.0); EOS # 0.2 10^3/uL (0.0-0.5); EOS % 2.2 % (0.0-3.0); HEMATOCRIT 38.2 % (36.0-47.0); HEMOGLOBIN 12.1 g/dl (12.0-15.5); LYMPH # 1.9 10^3/uL (1.5-5.0); LYMPH % 28.4 % (24.0-44.0); MEAN CORPUSCULAR HEMOGLOBIN 30.6 pg (27.0-33.0); MEAN CORPUSCULAR HGB CONC 31.7 g/dl (32.0-36.5); MEAN CORPUSCULAR VOLUME 96.7 fl (80.0-96.0); MONO # 0.6 10^3/uL (0.0-0.8); MONO % 9.4 % (2.0-8.0); NEUTROPHILS # 3.9 10^3/uL (1.5-8.5); NEUTROPHILS % 58.9 % (36.0-66.0); PLATELET COUNT, AUTOMATED 329 10^3/uL (150-450); RED BLOOD COUNT 3.95 10^6/uL (4.00-5.40); WHITE BLOOD COUNT 6.7 10^3/uL (4.0-10.0)
== END ==
LOC: M PLALAB 10:24
PROVIDERS: ATTEND Physician Assistant
DX: E55.9 Vitamin D deficiency, unspecified (principal); I10 Essential (primary) hypertension; F03.90 Unspecified dementia, unspecified severity, without behavioral disturbance, psychotic disturbance, mood disturbance, and anxiety

== ENCOUNTER 2023-01-01 16:01 | Emergency (ER) | payer MEDICARE ==
[~2023-01-01] VITALS: Ht 162.6 cm; Wt 76.8 kg
[2023-01-01] MEDS ORDERED: ACETAMINOPHEN 325 MG TAB PO ONE (18:05)
[2023-01-01 18:37] VITALS: BP 156/70
== END 2023-01-01 18:39 | disposition home or self-care (01) ==
LOC: M ED 16:01
DX: M25.461 Effusion, right knee (principal); I10 Essential (primary) hypertension; R41.89 Other symptoms and signs involving cognitive functions and awareness; N18.9 Chronic kidney disease, unspecified; Z79.899 Other long term (current) drug therapy

== ENCOUNTER → 2023-04-16 | Outpatient (CLI) | payer MEDICARE ==
[2023-04-16 13:49] LABS: BASO % 0.6 % (0.0-1.0); EOS # 0.1 10^3/uL (0.0-0.5); HEMATOCRIT 38.1 % (36.0-47.0); HEMOGLOBIN 12.7 g/dl (12.0-15.5); LYMPH # 1.7 10^3/uL (1.5-5.0); LYMPH % 24.6 % (24.0-44.0); MEAN CORPUSCULAR HEMOGLOBIN 32.2 pg (27.0-33.0); MEAN CORPUSCULAR HGB CONC 33.3 g/dl (32.0-36.5); MEAN CORPUSCULAR VOLUME 96.5 fl (80.0-96.0); MONO # 0.7 10^3/uL (0.0-0.8); MONO % 9.4 % (2.0-8.0); NEUTROPHILS # 4.5 10^3/uL (1.5-8.5); NEUTROPHILS % 64.3 % (36.0-66.0); PLATELET COUNT, AUTOMATED 266 10^3/uL (150-450); RED BLOOD COUNT 3.95 10^6/uL (4.00-5.40)
[2023-04-16 14:16] LABS: HEMOGLOBIN A1c 5.1 % (4.0-6.0)
[2023-04-16 14:17] LABS: THYROID STIMULATING HORMONE 1.685 uIU/ML (0.55-4.78); TOTAL 25(OH) VITAMIN D 28.4 NG/ML (20.0-100.0)
[2023-04-16 14:19] LABS: ALBUMIN 3.9 G/DL (3.2-5.2); ALKALINE PHOSPHATASE 81 U/L (46-116); ALT/SGPT 11 U/L (7.0-40); AST/SGOT 22 U/L (<34); BILIRUBIN,TOTAL 0.7 MG/DL (0.3-1.2); BLOOD UREA NITROGEN 13 MG/DL (9-23); CALCIUM LEVEL 9.8 MG/DL (8.3-10.6); CARBON DIOXIDE LEVEL 25 MMOL/L (20-31); CHLORIDE LEVEL 105 MMOL/L (98-107); CHOLESTEROL LEVEL 236 MG/DL (<200); CHOLESTEROL RISK RATIO 5.09 (<5); CREATININE FOR GFR 0.69 MG/DL (0.55-1.30); GLOMERULAR FILTRATION RATE > 60.0 (>32); GLUCOSE, FASTING 76 MG/DL (74-106); HDL CHOLESTEROL 46.3 MG/DL (>40); LDL CHOLESTEROL 169.3 MG/DL (<100); NON-HDL-C 189.7 MG/DL; POTASSIUM SERUM 4.8 MMOL/L (3.5-5.1); SODIUM LEVEL 140 MMOL/L (136-145); TOTAL PROTEIN 6.9 G/DL (5.7-8.2); TRIGLYCERIDES LEVEL 102 MG/DL (<150)
== END ==
LOC: M PLALAB 11:31
PROVIDERS: ATTEND Physician Assistant
DX: M85.88 Other specified disorders of bone density and structure, other site (principal); M17.12 Unilateral primary osteoarthritis, left knee; R63.4 Abnormal weight loss; I10 Essential (primary) hypertension; E78.2 Mixed hyperlipidemia; E55.9 Vitamin D deficiency, unspecified; Z79.899 Other long term (current) drug therapy

== ENCOUNTER 2023-09-21 12:00 | Emergency (ER) | payer MEDICARE ==
[~2023-09-21] VITALS: Ht 162.6 cm; Wt 68.2 kg
[2023-09-21 12:00] VITALS: TEMP 97.8
[2023-09-21] MEDS ORDERED: DICL20GE TOP (14:21)
[2023-09-21 14:37] VITALS: BP 174/85; O2SAT 100
== END 2023-09-21 14:38 | disposition home or self-care (01) ==
LOC: M ED 12:00
DX: M17.11 Unilateral primary osteoarthritis, right knee (principal); M25.461 Effusion, right knee; I10 Essential (primary) hypertension; F03.90 Unspecified dementia, unspecified severity, without behavioral disturbance, psychotic disturbance, mood disturbance, and anxiety; Z79.899 Other long term (current) drug therapy

== ENCOUNTER 2024-02-18 11:05 | Inpatient (IN) | payer MEDICARE ==
[~2024-02-18] VITALS: Ht 162.6 cm; Wt 76.9 kg
[~2024-02-18 11:05] MED LIST changes: +DICL20GE TOP
[2024-02-18 11:48] LABS: BASO % 0.6 % (0.0-1.0); EOS # 0.1 10^3/uL (0.0-0.5); HEMATOCRIT 35.8 % (36.0-47.0); HEMOGLOBIN 12.1 g/dl (12.0-15.5); LYMPH # 1.2 10^3/uL (1.5-5.0); LYMPH % 17.6 % (24.0-44.0); MEAN CORPUSCULAR HEMOGLOBIN 32.4 pg (27.0-33.0); MEAN CORPUSCULAR HGB CONC 33.8 g/dl (32.0-36.5); MEAN CORPUSCULAR VOLUME 95.7 fl (80.0-96.0); MONO # 0.7 10^3/uL (0.0-0.8); MONO % 9.4 % (2.0-8.0); NEUTROPHILS # 4.9 10^3/uL (1.5-8.5); PLATELET COUNT, AUTOMATED 285 10^3/uL (150-450); RED BLOOD COUNT 3.74 10^6/uL (4.00-5.40); WHITE BLOOD COUNT 6.9 10^3/uL (4.0-10.0)
[2024-02-18 12:03] LABS: VENOUS BASE EXCESS -1.9 (-2.0-2.0); VENOUS HCO3 23.4 MMOL/L (23.0-27.0); VENOUS O2 SATURATION 89.4 % (60.0-80.0); VENOUS PARTIAL PRESSURE CO2 41.8 mmHg (38.0-50.0); VENOUS PARTIAL PRESSURE O2 59.3 mmHg (30.0-50.0); VENOUS PH 7.366 UNITS (7.330-7.430); VENOUS STANDARD HCO3 22.7 MMOL/L; VENOUS TOTAL CO2 24.7 MMOL/L (24.0-28.0)
[2024-02-18 12:15] LABS: ALBUMIN 3.6 G/DL (3.2-5.2); ALKALINE PHOSPHATASE 116 U/L (46-116); ALT/SGPT 10 U/L (7.0-40); AST/SGOT 14 U/L (<34); BILIRUBIN,DIRECT 0.2 MG/DL (<0.4); BILIRUBIN,TOTAL 0.6 MG/DL (0.3-1.2); BLOOD UREA NITROGEN 15 MG/DL (9-23); CALCIUM LEVEL 9.3 MG/DL (8.3-10.6); CARBON DIOXIDE LEVEL 27 MMOL/L (20-31); CHLORIDE LEVEL 101 MMOL/L (98-107); CREATININE FOR GFR 0.64 MG/DL (0.55-1.30); GLOMERULAR FILTRATION RATE > 60.0 (>32); GLUCOSE, FASTING 124 MG/DL (74-106); OSMOLALITY SERUM 281 MOSM/KG (280-301); POTASSIUM SERUM 4.2 MMOL/L (3.5-5.1); SODIUM LEVEL 133 MMOL/L (136-145); TOTAL PROTEIN 6.7 G/DL (5.7-8.2)
[2024-02-18 12:16] LABS: THYROID STIMULATING HORMONE 1.447 uIU/ML (0.55-4.78)
[2024-02-18] MEDS: LABETALOL 100MG/20ML VIAL IV STA (12:42)
[2024-02-18] MEDS ORDERED: MOM 30ML SUSPENSION UDC PO PRN (16:15)
[2024-02-18] MEDS ORDERED: MAALOX 30 ML SUSP *UDC PO PRN (16:15)
[2024-02-18] MEDS: cefTRIAXone SOD 2 GM in D5W MINI-BAG PLUS 50 ML IV SCH (17:28)
[2024-02-18] MEDS: hydrALAZINE 20MG/ML 1ML VIAL IV ONE (17:29)
[2024-02-18] MEDS ORDERED: HOME MED LIST COMPLETE! XX SCH (17:35)
[2024-02-18 18:29] VITALS: BP 142/90; TEMP 97.8; O2SAT 98
[2024-02-18 20:00] VITALS: BP 148/66; TEMP 97.5; O2SAT 98
[2024-02-18] MEDS: HEPARIN SOD (PORCINE) 5000UNITS/ML 1ML VIAL/SYRINGE SC SCH (20:51)
[2024-02-18] MEDS: DOCUSATE SODIUM 100MG CAPSULE PO SCH (20:51)
[2024-02-18] MEDS: METOPROLOL TART 12.5 MG PER 1/2 TAB PO SCH (20:52)
[2024-02-18] MEDS: OLANZapine INTRAMUSCULAR 10MG VIAL IM ONE ×2 (23:22→23:56)
[2024-02-19] MEDS: HALOPERIDOL LACTATE 5MG/ML VIAL IM STA (01:33)
[2024-02-19 04:00] VITALS: BP 125/59; TEMP 97.1; O2SAT 95
[2024-02-19 08:00] VITALS: BP 189/84; TEMP 97.9; O2SAT 99
[2024-02-19] MEDS: OLANZapine INTRAMUSCULAR 10MG VIAL IM ONE (08:10)
[2024-02-19 08:28] LABS: BLOOD UREA NITROGEN 12 MG/DL (9-23); CALCIUM LEVEL 9.6 MG/DL (8.3-10.6); CARBON DIOXIDE LEVEL 26 MMOL/L (20-31); CHLORIDE LEVEL 98 MMOL/L (98-107); CREATININE FOR GFR 0.65 MG/DL (0.55-1.30); GLOMERULAR FILTRATION RATE > 60.0 (>32); GLUCOSE, FASTING 103 MG/DL (74-106); MAGNESIUM LEVEL 1.8 MG/DL (1.8-2.4); POTASSIUM SERUM 4.1 MMOL/L (3.5-5.1); SODIUM LEVEL 132 MMOL/L (136-145)
[2024-02-19] MEDS: HALOPERIDOL LACTATE 5MG/ML VIAL IM PRN (12:33)
[2024-02-19] MEDS ORDERED: HALOPERIDOL LACTATE 5MG/ML VIAL IV PRN (13:05)
[2024-02-19] MEDS: LORazepam 2 MG/ML 1ML VIAL IV STA (13:39)
[2024-02-19] MEDS: BREXPIPRAZOLE 0.5MG TABLET (REXULTI) PO SCH (14:07)
[2024-02-19 15:56] VITALS: BP 166/96; TEMP 96.7; O2SAT 96
[2024-02-19 19:00] VITALS: BP 205/95; TEMP 97
[2024-02-19] MEDS: OLANZapine 2.5MG TABLET PO SCH (20:46)
[2024-02-19] MEDS: RAMELTEON 8 MG TAB (ROZEREM) PO SCH (20:46)
[2024-02-19] MEDS: hydrALAZINE 20MG/ML 1ML VIAL IV PRN (23:00)
[2024-02-19 23:01] VITALS: BP 204/91
[2024-02-19 23:47] VITALS: BP 186/110
[2024-02-20] VITALS (12 sets, daily range): BP systolic 122–193; BP diastolic 59–87; TEMP 97–98; O2SAT 95–98
[2024-02-20] MEDS: LABETALOL 100MG/20ML VIAL IV ONE (02:27)
[2024-02-20 06:34] LABS: BLOOD UREA NITROGEN 15 MG/DL (9-23); CALCIUM LEVEL 9.6 MG/DL (8.3-10.6); CARBON DIOXIDE LEVEL 24 MMOL/L (20-31); CHLORIDE LEVEL 101 MMOL/L (98-107); GLOMERULAR FILTRATION RATE > 60.0 (>32); GLUCOSE, FASTING 102 MG/DL (74-106); MAGNESIUM LEVEL 1.8 MG/DL (1.8-2.4); POTASSIUM SERUM 3.9 MMOL/L (3.5-5.1); SODIUM LEVEL 134 MMOL/L (136-145)
[2024-02-21 08:36] VITALS: BP 188/83; TEMP 98.7; O2SAT 98
[2024-02-21 09:34] LABS: BLOOD UREA NITROGEN 24 MG/DL (9-23); CALCIUM LEVEL 9.1 MG/DL (8.3-10.6); CARBON DIOXIDE LEVEL 24 MMOL/L (20-31); CHLORIDE LEVEL 101 MMOL/L (98-107); CREATININE FOR GFR 0.54 MG/DL (0.55-1.30); GLOMERULAR FILTRATION RATE > 60.0 (>32); GLUCOSE, FASTING 113 MG/DL (74-106); POTASSIUM SERUM 3.9 MMOL/L (3.5-5.1); SODIUM LEVEL 134 MMOL/L (136-145)
[2024-02-21 12:08] VITALS: BP 158/67; TEMP 98.9; O2SAT 97
[2024-02-21] MEDS: OLANZapine INTRAMUSCULAR 10MG VIAL IM PRN (13:25)
[2024-02-21 16:00] VITALS: BP 158/67; TEMP 98.9; O2SAT 97
[2024-02-21 19:50] VITALS: BP 167/87; TEMP 98.6; O2SAT 95
[2024-02-21 20:00] VITALS: BP 167/87; PULSE 86; TEMP 98.6; O2SAT 95
[2024-02-21] MEDS: HALOPERIDOL LACTATE 5MG/ML VIAL IM STA (20:07)
[2024-02-21] MEDS: ALPRAZolam 0.25 MG TAB PO ONE (20:14)
[2024-02-22] VITALS (7 sets, daily range): BP systolic 118–167; BP diastolic 56–87; PULSE 86; TEMP 97.2–98.6; O2SAT 95–98
[2024-02-22] MEDS: NITROGLYCERIN 2% OINT 1 GM *U/D* PKT TOP SCH (09:00)
[2024-02-22] MEDS: CEFDINIR 300 MG CAP (OMNICEF) PO SCH (19:41)
[2024-02-23 07:09] VITALS: BP 124/62; TEMP 97; O2SAT 95
[2024-02-23 07:16] VITALS: BP 157/73; TEMP 96.8; O2SAT 96
[2024-02-23] MEDS: ACETAMINOPHEN TAB 650MG DOSE (2X325MG) PO PRN (15:37)
[2024-02-23 15:58] VITALS: BP 136/52; TEMP 96.9; O2SAT 96
[2024-02-23 18:30] VITALS: BP 134/73; TEMP 97.5; O2SAT 97
[2024-02-23] MEDS: CYCLOBENZAPRINE 5MG TABLET PO ONE (18:50)
[2024-02-23 20:16] VITALS: BP 130/74; TEMP 97.5; O2SAT 96
[2024-02-24 04:15] VITALS: TEMP 97.5
[2024-02-24 12:00] VITALS: BP 147/61; TEMP 97.3; O2SAT 97
[2024-02-24 19:57] VITALS: BP 176/82; TEMP 97.3; O2SAT 97
[2024-02-24] MEDS: OLANZapine 5 MG TAB PO SCH (20:15)
[2024-02-25 04:50] VITALS: BP 181/77; TEMP 97; O2SAT 97
[2024-02-25 06:08] LABS: BASO # 0.1 10^3/uL (0.0-0.2); BASO % 0.6 % (0.0-1.0); EOS # 0.3 10^3/uL (0.0-0.5); EOS % 2.5 % (0.0-3.0); HEMATOCRIT 39.8 % (36.0-47.0); HEMOGLOBIN 13.6 g/dl (12.0-15.5); LYMPH # 1.7 10^3/uL (1.5-5.0); LYMPH % 16.6 % (24.0-44.0); MEAN CORPUSCULAR HEMOGLOBIN 32.2 pg (27.0-33.0); MEAN CORPUSCULAR HGB CONC 34.2 g/dl (32.0-36.5); MEAN CORPUSCULAR VOLUME 94.1 fl (80.0-96.0); MONO # 1.1 10^3/uL (0.0-0.8); MONO % 10.6 % (2.0-8.0); NEUTROPHILS # 7.1 10^3/uL (1.5-8.5); NEUTROPHILS % 69.2 % (36.0-66.0); PLATELET COUNT, AUTOMATED 218 10^3/uL (150-450); RED BLOOD COUNT 4.23 10^6/uL (4.00-5.40); WHITE BLOOD COUNT 10.3 10^3/uL (4.0-10.0)
[2024-02-25 06:39] LABS: BLOOD UREA NITROGEN 38 MG/DL (9-23); CALCIUM LEVEL 9.8 MG/DL (8.3-10.6); CARBON DIOXIDE LEVEL 24 MMOL/L (20-31); CHLORIDE LEVEL 105 MMOL/L (98-107); CREATININE FOR GFR 0.46 MG/DL (0.55-1.30); GLOMERULAR FILTRATION RATE > 60.0 (>32); GLUCOSE, FASTING 95 MG/DL (74-106); POTASSIUM SERUM 4.2 MMOL/L (3.5-5.1); SODIUM LEVEL 136 MMOL/L (136-145)
[2024-02-25] MEDS: OLANZapine INTRAMUSCULAR 10MG VIAL IM PRN (12:20)
[2024-02-25 20:17] VITALS: BP 135/55; TEMP 97.7; O2SAT 97
[2024-02-26 04:24] VITALS: BP 141/67; TEMP 97.5; O2SAT 97
[2024-02-26 08:57] LABS: BLOOD UREA NITROGEN 51 MG/DL (9-23); CALCIUM LEVEL 9.7 MG/DL (8.3-10.6); CARBON DIOXIDE LEVEL 21 MMOL/L (20-31); CHLORIDE LEVEL 104 MMOL/L (98-107); CREATININE FOR GFR 0.68 MG/DL (0.55-1.30); GLOMERULAR FILTRATION RATE > 60.0 (>32); GLUCOSE, FASTING 132 MG/DL (74-106); POTASSIUM SERUM 3.9 MMOL/L (3.5-5.1); SODIUM LEVEL 137 MMOL/L (136-145)
[2024-02-26] MEDS: NS 1,000 ML IV ONE (12:22)
[2024-02-26 12:28] VITALS: BP 140/64; TEMP 97.9; O2SAT 96
[2024-02-26] MEDS: ALBUTEROL SULFATE 2.5MG/0.5ML INH NEB SOLN NEB ONE (14:06)
[2024-02-26 19:17] VITALS: BP 140/63; TEMP 97.9; O2SAT 95
[2024-02-27] MEDS: ALBUTEROL SULFATE 2.5MG/0.5ML INH NEB SOLN NEB SCH
[2024-02-27] MEDS: OLANZapine 2.5MG TABLET PO SCH (09:00)
[2024-02-27] MEDS ORDERED: DOCUSATE SODIUM 100MG CAPSULE As Ordered ONE (09:05)
[2024-02-27] MEDS ORDERED: HEPARIN SOD (PORCINE) 5000UNITS/ML 1ML VIAL/SYRINGE As Ordered ONE (09:05)
[2024-02-27] MEDS: BREXPIPRAZOLE 0.5MG TABLET (REXULTI) PO SCH (10:25)
[2024-02-27 12:00] VITALS: BP 142/62; TEMP 97.5; O2SAT 96
[2024-02-27 14:06] LABS: ALBUMIN 2.8 G/DL (3.2-5.2); ALKALINE PHOSPHATASE 83 U/L (46-116); ALT/SGPT 13 U/L (7.0-40); AST/SGOT 23 U/L (<34); BILIRUBIN,TOTAL 0.7 MG/DL (0.3-1.2); BLOOD UREA NITROGEN 52 MG/DL (9-23); CALCIUM LEVEL 9.5 MG/DL (8.3-10.6); CARBON DIOXIDE LEVEL 25 MMOL/L (20-31); CHLORIDE LEVEL 106 MMOL/L (98-107); CREATININE FOR GFR 0.65 MG/DL (0.55-1.30); GLOMERULAR FILTRATION RATE > 60.0 (>32); GLUCOSE, FASTING 100 MG/DL (74-106); MAGNESIUM LEVEL 1.9 MG/DL (1.8-2.4); PHOSPHORUS LEVEL 3.3 MG/DL (2.4-5.1); SODIUM LEVEL 137 MMOL/L (136-145)
[2024-02-27 14:48] VITALS: BP 140/73; TEMP 97.7; O2SAT 98
[2024-02-27 16:53] LABS: HEMOGLOBIN 11.6 g/dl (12.0-15.5); MEAN CORPUSCULAR HEMOGLOBIN 31.8 pg (27.0-33.0); MEAN CORPUSCULAR HGB CONC 33.1 g/dl (32.0-36.5); MEAN CORPUSCULAR VOLUME 95.9 fl (80.0-96.0); PLATELET COUNT, AUTOMATED 154 10^3/uL (150-450); RED BLOOD COUNT 3.65 10^6/uL (4.00-5.40); WHITE BLOOD COUNT 10.9 10^3/uL (4.0-10.0)
[2024-02-27 20:00] VITALS: BP 144/60; TEMP 97.7; O2SAT 95
[2024-02-28 04:00] VITALS: BP 148/63; TEMP 97.5; O2SAT 98
[2024-02-28] MEDS: SODIUM CHLORIDE HYPERTONIC 3% 4ML NEB SOL INH SCH (08:00)
[2024-02-28 12:04] LABS: BASO # 0.1 10^3/uL (0.0-0.2); BASO % 0.5 % (0.0-1.0); EOS # 0.3 10^3/uL (0.0-0.5); EOS % 2.6 % (0.0-3.0); HEMATOCRIT 35.8 % (36.0-47.0); HEMOGLOBIN 12.2 g/dl (12.0-15.5); LYMPH # 1.7 10^3/uL (1.5-5.0); LYMPH % 16.3 % (24.0-44.0); MEAN CORPUSCULAR HEMOGLOBIN 32.1 pg (27.0-33.0); MEAN CORPUSCULAR HGB CONC 34.1 g/dl (32.0-36.5); MEAN CORPUSCULAR VOLUME 94.2 fl (80.0-96.0); MONO # 0.9 10^3/uL (0.0-0.8); MONO % 8.5 % (2.0-8.0); NEUTROPHILS # 7.6 10^3/uL (1.5-8.5); NEUTROPHILS % 71.3 % (36.0-66.0); WHITE BLOOD COUNT 10.7 10^3/uL (4.0-10.0)
[2024-02-28 12:07] LABS: INR 1.08; PARTIAL THROMBOPLASTIN TIME 26.3 SECONDS (24.8-34.2); PROTHROMBIN TIME 13.7 SECONDS (12.5-14.5)
[2024-02-28 12:11] VITALS: BP 152/74; TEMP 96.8; O2SAT 97
[2024-02-28 12:18] LABS: BLOOD UREA NITROGEN 24 MG/DL (9-23); CALCIUM LEVEL 9.5 MG/DL (8.3-10.6); CARBON DIOXIDE LEVEL 24 MMOL/L (20-31); CHLORIDE LEVEL 106 MMOL/L (98-107); CREATININE FOR GFR 0.44 MG/DL (0.55-1.30); GLOMERULAR FILTRATION RATE > 60.0 (>32); GLUCOSE, FASTING 104 MG/DL (74-106); POTASSIUM SERUM 4.2 MMOL/L (3.5-5.1); SODIUM LEVEL 136 MMOL/L (136-145)
[2024-02-28 12:24] LABS: PLATELET COUNT, AUTOMATED 153 10^3/uL (150-450)
[2024-02-28] MEDS: NS 1,000 ML IV ONE (15:29)
[2024-02-28 20:00] VITALS: BP 170/72; TEMP 97.9; O2SAT 96
[2024-02-28] MEDS: OLANZapine 5 MG TAB PO SCH (21:00)
[2024-02-29 04:00] VITALS: BP 180/70; TEMP 97.7; O2SAT 96
[2024-02-29 06:30] VITALS: BP 162/78
[2024-02-29] MEDS: OLANZapine 2.5MG TABLET PO SCH (09:54)
[2024-02-29 10:00] VITALS: BP 127/86; TEMP 97.7; O2SAT 95
[2024-02-29 11:10] LABS: BASO % 0.3 % (0.0-1.0); EOS # 0.2 10^3/uL (0.0-0.5); EOS % 2.1 % (0.0-3.0); HEMATOCRIT 37.2 % (36.0-47.0); HEMOGLOBIN 12.4 g/dl (12.0-15.5); LYMPH # 1.4 10^3/uL (1.5-5.0); LYMPH % 16.1 % (24.0-44.0); MEAN CORPUSCULAR HGB CONC 33.3 g/dl (32.0-36.5); MEAN CORPUSCULAR VOLUME 95.9 fl (80.0-96.0); MONO # 0.7 10^3/uL (0.0-0.8); MONO % 7.3 % (2.0-8.0); NEUTROPHILS # 6.6 10^3/uL (1.5-8.5); NEUTROPHILS % 73.4 % (36.0-66.0); PLATELET COUNT, AUTOMATED 179 10^3/uL (150-450); RED BLOOD COUNT 3.88 10^6/uL (4.00-5.40); WHITE BLOOD COUNT 8.9 10^3/uL (4.0-10.0)
[2024-02-29 11:42] LABS: BLOOD UREA NITROGEN 17 MG/DL (9-23); CALCIUM LEVEL 9.7 MG/DL (8.3-10.6); CARBON DIOXIDE LEVEL 24 MMOL/L (20-31); CHLORIDE LEVEL 104 MMOL/L (98-107); CREATININE FOR GFR 0.48 MG/DL (0.55-1.30); GLOMERULAR FILTRATION RATE > 60.0 (>32); GLUCOSE, FASTING 136 MG/DL (74-106); POTASSIUM SERUM 3.9 MMOL/L (3.5-5.1); SODIUM LEVEL 137 MMOL/L (136-145)
[2024-02-29 12:00] VITALS: BP 127/86; TEMP 97.7; O2SAT 95
[2024-02-29 19:29] VITALS: BP 116/56; TEMP 98.6; O2SAT 97
[2024-03-01 04:10] VITALS: BP 112/55; TEMP 97.9; O2SAT 96
[2024-03-01 12:00] VITALS: BP 128/53; TEMP 97.9; O2SAT 98
[2024-03-01 19:32] VITALS: BP 153/61; TEMP 97.2; O2SAT 97
[2024-03-01] MEDS: OLANZapine 2.5MG TABLET PO SCH (20:08)
[2024-03-02 04:22] VITALS: BP 133/59; TEMP 98.2; O2SAT 95
[2024-03-02 12:00] VITALS: BP 122/66; TEMP 97.7; O2SAT 98
[2024-03-02] MEDS ORDERED: ALBUTEROL SULFATE 2.5MG/0.5ML INH NEB SOLN NEB PRN (12:10)
[2024-03-02] MEDS: RIVAROXABAN 10MG TAB (XARELTO) PO SCH (17:12)
[2024-03-02 19:52] VITALS: BP 155/78; TEMP 98.6; O2SAT 97
[2024-03-02] MEDS: RAMELTEON 8 MG TAB (ROZEREM) PO PRN (19:55)
[2024-03-03 05:00] VITALS: BP 148/86; TEMP 97.5; O2SAT 96
[2024-03-03 08:57] VITALS: BP 114/55
[2024-03-03] MEDS ORDERED: AMLO1TAB25 PO (10:03)
[2024-03-03] MEDS ORDERED: REXU1TAB2 PO (10:03)
[2024-03-03] MEDS ORDERED: OLAN2.5T25 PO ×2 (10:03→10:06)
== END 2024-03-03 12:40 | DRG 689 ==
LOC: EDBD 11:05 → M ED 11:05 → M ED INP 16:14 → M PCU 18:19 → M MS5PR 02-23 18:10
PROVIDERS: ADMIT Student in an Organized Health Care Education/Training Program; ATTEND Student in an Organized Health Care Education/Training Program
DX: N39.0 Urinary tract infection, site not specified (principal); G93.41 Metabolic encephalopathy; F03.911 Unspecified dementia, unspecified severity, with agitation; B96.20 Unspecified Escherichia coli [E. coli] as the cause of diseases classified elsewhere; I10 Essential (primary) hypertension; M19.90 Unspecified osteoarthritis, unspecified site; E78.5 Hyperlipidemia, unspecified; I71.20 Thoracic aortic aneurysm, without rupture, unspecified; F32.A Depression, unspecified; I16.0 Hypertensive urgency; R26.89 Other abnormalities of gait and mobility; Z85.828 Personal history of other malignant neoplasm of skin; Z90.49 Acquired absence of other specified parts of digestive tract; E86.0 Dehydration; R33.9 Retention of urine, unspecified; R44.1 Visual hallucinations; Z66 Do not resuscitate

== ENCOUNTER → 2024-09-24 | Outpatient (REF) | payer MEDICARE, MEDICAID ==
[~2024-09-24] MED LIST changes: +AMLO1TAB25 PO; +OLAN2.5T53 PO; +REXU1TAB2 PO
[2024-09-24 10:15] LABS: HEMOGLOBIN 11.2 g/dl (12.0-15.5); MEAN CORPUSCULAR HEMOGLOBIN 33.3 pg (27.0-33.0); MEAN CORPUSCULAR HGB CONC 32.9 g/dl (32.0-36.5); MEAN CORPUSCULAR VOLUME 101.2 fl (80.0-96.0); PLATELET COUNT, AUTOMATED 271 10^3/uL (150-450); RED BLOOD COUNT 3.36 10^6/uL (4.00-5.40); WHITE BLOOD COUNT 6.4 10^3/uL (4.0-10.0)
[2024-09-24 10:33] LABS: ALBUMIN 3.4 G/DL (3.2-5.2); ALKALINE PHOSPHATASE 97 U/L (35-104); ALT/SGPT 10 U/L (7.0-40); AST/SGOT 13 U/L (<34); BILIRUBIN,TOTAL 0.3 MG/DL (0.3-1.2); BLOOD UREA NITROGEN 19 MG/DL (9-23); CARBON DIOXIDE LEVEL 27 MMOL/L (20-31); CHLORIDE LEVEL 104 MMOL/L (98-107); CREATININE FOR GFR 0.72 MG/DL (0.55-1.30); GLOMERULAR FILTRATION RATE > 60.0 (>32); GLUCOSE, FASTING 97 MG/DL (74-106); SODIUM LEVEL 141 MMOL/L (136-145); TOTAL PROTEIN 6.5 G/DL (5.7-8.2)
[2024-09-24 10:35] LABS: VITAMIN B12 LEVEL 122 PG/ML (211-911)
== END ==
LOC: SKLAB5 07:43
PROVIDERS: ATTEND Internal Medicine
DX: E55.9 Vitamin D deficiency, unspecified (principal); I10 Essential (primary) hypertension

== ENCOUNTER 2024-10-05 10:08 | Emergency (ER) | payer MEDICARE, MEDICAID ==
[~2024-10-05] VITALS: Ht 162.6 cm; Wt 65.9 kg
[2024-10-05 11:30] VITALS: BP 152/67; TEMP 97.3; O2SAT 97
== END 2024-10-05 11:30 | disposition home or self-care (01) ==
LOC: M ED 10:08 → EDBD 10:08 → M ED 11:30
DX: S00.03XA Contusion of scalp, initial encounter (principal); W19.XXXA Unspecified fall, initial encounter; Y92.129 Unspecified place in nursing home as the place of occurrence of the external cause; Y93.9 Activity, unspecified; Y99.9 Unspecified external cause status; R29.6 Repeated falls; F03.918 Unspecified dementia, unspecified severity, with other behavioral disturbance; I10 Essential (primary) hypertension; E78.5 Hyperlipidemia, unspecified; F32.A Depression, unspecified; Z79.899 Other long term (current) drug therapy

== ENCOUNTER → 2024-10-26 | Outpatient (CLI) | payer MEDICARE, MEDICAID | LOC: M RAD 13:36 | PROVIDERS: ATTEND Internal Medicine | DX: M17.12 Unilateral primary osteoarthritis, left knee (principal) ==

== ENCOUNTER → 2024-12-10 | Outpatient (CLI) | payer MEDICARE, MEDICAID | LOC: M RAD 13:47 | PROVIDERS: ATTEND Internal Medicine | DX: I82.432 Acute embolism and thrombosis of left popliteal vein (principal) ==

== ENCOUNTER → 2025-03-03 | Outpatient (CLI) | payer MEDICARE, MEDICAID ==
[~2025-03-03] MED LIST changes: +ACET-910 PO; +CHOL1250 PO; +DIVA125C6 PO; +ELIQ5TAB PO; +LIDO1ADH93 TOP; -LIDO5DIS41 TOP; +MILKSUS3 PO
== END ==
LOC: M RAD 12:28
PROVIDERS: ATTEND Internal Medicine
DX: Z53.9 Procedure and treatment not carried out, unspecified reason (principal)

== ENCOUNTER → 2025-03-03 | Outpatient (REF) | payer MEDICARE, MEDICAID | LOC: SKLAB7 11:31 | PROVIDERS: ATTEND Internal Medicine | DX: Z91.81 History of falling (principal) ==

== ENCOUNTER → 2025-03-04 | Outpatient (CLI) | payer MEDICARE, MEDICAID | LOC: M RAD 11:29 | PROVIDERS: ATTEND Internal Medicine | DX: R07.81 Pleurodynia (principal); M19.031 Primary osteoarthritis, right wrist; M25.531 Pain in right wrist ==

== ENCOUNTER 2025-07-03 17:25 | Emergency (ER) | payer MEDICARE, MEDICAID ==
[2025-07-03 19:55] VITALS: BP 135/92; O2SAT 99
[2025-07-03 20:59] VITALS: TEMP 99.4
== END 2025-07-03 21:50 | disposition home or self-care (01) ==
LOC: M ED 17:25 → EDBD 17:25 → M ED 21:50
DX: M79.662 Pain in left lower leg (principal); I10 Essential (primary) hypertension; E78.5 Hyperlipidemia, unspecified; F03.90 Unspecified dementia, unspecified severity, without behavioral disturbance, psychotic disturbance, mood disturbance, and anxiety; I71.20 Thoracic aortic aneurysm, without rupture, unspecified; Z86.718 Personal history of other venous thrombosis and embolism; F17.200 Nicotine dependence, unspecified, uncomplicated; Z79.01 Long term (current) use of anticoagulants; Z79.899 Other long term (current) drug therapy

== ENCOUNTER → 2025-07-04 | Outpatient (CLI) | payer MEDICARE, MEDICAID | LOC: M RAD 12:24 | PROVIDERS: ATTEND Nurse Practitioner | DX: M79.662 Pain in left lower leg (principal); M79.89 Other specified soft tissue disorders; M85.862 Other specified disorders of bone density and structure, left lower leg; M17.12 Unilateral primary osteoarthritis, left knee ==

== ENCOUNTER → 2025-08-08 | Outpatient (REF) | payer MEDICARE, MEDICAID ==
[2025-08-08 10:51] LABS: VALPROIC ACID (DEPAKOTE) 45.4 UG/ML (50.0-100.0)
[2025-08-08 10:52] LABS: ALT/SGPT < 9 U/L (7.0-40); AST/SGOT 19 U/L (<34); CALCIUM LEVEL 9.0 MG/DL (8.3-10.6); CARBON DIOXIDE LEVEL 28 MMOL/L (20-31); CHLORIDE LEVEL 104 MMOL/L (98-107); CREATININE FOR GFR 0.54 MG/DL (0.55-1.30); GLOMERULAR FILTRATION RATE > 90.0 (>32); POTASSIUM SERUM 4.2 MMOL/L (3.5-5.1); SODIUM LEVEL 139 MMOL/L (136-145)
== END ==
LOC: SKLAB7 07:00
PROVIDERS: ATTEND Internal Medicine
DX: Z86.59 Personal history of other mental and behavioral disorders (principal); Z79.899 Other long term (current) drug therapy